=== PATIENT | female | born 1970 | race Caucasian/White ===

== ENCOUNTER → 2018-01-20 | Outpatient (CLI) | payer OTHER, MEDICAID | LOC: M RAD 11:46 | DX: R59.0 Localized enlarged lymph nodes (principal) | CPT/HCPCS: 76882 ==

== ENCOUNTER → 2018-04-04 | Outpatient (REF) | payer OTHER | LOC: M LAB REF 10:01 | DX: R22.1 Localized swelling, mass and lump, neck (principal) ==

== ENCOUNTER 2019-04-21 10:21 | Day surgery (SDC) | payer OTHER ==
[~2019-04-21] VITALS: Ht 162.6 cm; Wt 99.7 kg
[~2019-04-21 10:21] MED LIST: AVEL1TAB2 OR; CELE100C OR; EYE OU; GABAPENTIN 300 MG CAP PO ONE; HYDROCODONE PO; LIDOCAINE 1% MDV 20ML VIAL SQ PRN; LISI10TA4 OR; LISI10TA4 PO; LR 1,000 ML IV ONE; NAPR500T2 PO; OMEP10CASR PO; OMEP20TA7 OR; PATA0.2S OU; PATADAY EYE DROPS OU; PERCOCET 5MG/325MG TAB PO ONE; SIMV20TA22 PO; TAPE50TA3 PO; TYLETAB14 PO; VICO5TAB OR; VICODINES TAB PO; VOLT1GEL EX
[2019-04-21] MEDS ORDERED: THROMBIN SOLN 20,000 UNITS KIT As Ordered ONE (11:01)
[2019-04-21] MEDS ORDERED: TRANEXAMIC ACID 100 MG/ML 10ML VIAL As Ordered ONE (11:01)
[2019-04-21] MEDS ORDERED: BUPIVACAINE/EPIN 0.25% 30 ML VIAL As Ordered ONE (11:01)
[2019-04-21] MEDS ORDERED: BUPIVACAINE HCL 0.25% 10 ML VIAL As Ordered ONE (11:01)
[2019-04-21] MEDS ORDERED: EPINEPHrine INJ 1 MG/ML 1ML VIAL As Ordered ONE (11:02)
[2019-04-21] MEDS ORDERED: BUPIVACAINE LIPOSOME/PF 1.3% 20ML VIAL (13.3MG/ML)(EXPAREL)(C9290 PER1MG) As Ordered ONE (11:02)
[2019-04-21] MEDS ORDERED: BACITRACIN PWD 50,000 UNITS VIAL As Ordered ONE (11:02)
[2019-04-21] MEDS ORDERED: ceFAZolin 2 GM/D5W 50 ML IV BAG (J0690 PER 500MG) As Ordered ONE (11:10)
[2019-04-21] MEDS ORDERED: PROPOFOL 200 MG/20 ML VIAL As Ordered ONE (12:02)
[2019-04-21] MEDS ORDERED: ROCURONIUM BROMIDE 50 MG/5 ML VIAL As Ordered ONE (12:02)
[2019-04-21] MEDS ORDERED: LIDOCAINE 2% INJ 100 MG/5 ML SDV (FOR ANES.) As Ordered ONE (12:02)
[2019-04-21] MEDS ORDERED: MIDAZOLAM INJ 2 MG/2 ML VIAL (J2250) As Ordered ONE (12:02)
[2019-04-21] MEDS ORDERED: fentaNYL 100 MCG/2 ML INJECTION (J3010) As Ordered ONE (12:03)
[2019-04-21] MEDS ORDERED: METOCLOPRAMIDE INJ 10MG/2ML VIAL (J2765) As Ordered ONE (13:11)
[2019-04-21] MEDS ORDERED: MORPHINE 10 MG/ML 1ML VIAL (J2270) As Ordered ONE (13:26)
[2019-04-21] MEDS ORDERED: PHENYLephrine HCL 500 MCG/5 ML (100MCG/ML) SYRINGE (J2370) As Ordered ONE (13:40)
[2019-04-21] MEDS ORDERED: ceFAZolin 2 GM/D5W 50 ML IV BAG (J0690 PER 500MG) IV ONE (13:47)
[2019-04-21] MEDS ORDERED: ONDANSETRON 4MG/2ML VIAL (J2405) As Ordered ONE (13:51)
--- NOTE | 2019-04-21 14:19 | REP ---
Single view lumbar spine: 04/21/2019. Indication: Procedural/operative guidance. Findings: The distal tip of the localizing instrument is posterior to the L5/S1 intervertebral disc. Impression: L5/S1 localization. Electronically Signed by John Heller DO 04/21/2019 02:11 P
[2019-04-21] MEDS ORDERED: HYDROMORPHONE HCL 0.5 MG/ 0.5 ML SYRINGE (J1170 PER 1) IV PRN (15:15)
[2019-04-21] MEDS ORDERED: PROMETHAZINE INJ 25 MG/ML VIAL (J2550) IV PRN (15:15)
[2019-04-21] MEDS ORDERED: PERCOCET 5MG/325MG TAB PO PRN ×2 (15:15)
[2019-04-21] MEDS ORDERED: METOCLOPRAMIDE INJ 10MG/2ML VIAL (J2765) IV PRN (15:15)
[2019-04-21] MEDS ORDERED: LR 1,000 ML IV SCH ×2 (15:15)
[2019-04-21] MEDS ORDERED: ONDANSETRON 4MG/2ML VIAL (J2405) IV PRN (15:15)
[2019-04-21] MEDS ORDERED: fentaNYL 100 MCG/2 ML INJECTION (J3010) IV PRN (15:15)
[2019-04-21 16:00] VITALS: BP 140/78
[2019-04-21 19:30] VITALS: BP 143/81
[2019-04-21 20:00] VITALS: BP 144/81
[2019-04-21] MEDS: METAMUCIL (PSYLLIUM) PACKET PO SCH (20:35)
[2019-04-21] MEDS: GABAPENTIN 400 MG CAP PO SCH (20:35)
[2019-04-21 21:00] VITALS: BP 143/80
[2019-04-21] MEDS ORDERED: SIMVASTATIN 20 MG TAB PO SCH (21:00)
[2019-04-21 22:00] VITALS: BP 137/77
[2019-04-21 23:00] VITALS: BP 139/78
[2019-04-22 02:00] VITALS: BP 101/65
[2019-04-22] MEDS: PERCOCET 5MG/325MG TAB PO PRN ×2 (05:33→10:55)
[2019-04-22 06:00] VITALS: BP 136/74
[2019-04-22 08:11] VITALS: BP 136/74
[2019-04-22] MEDS: METAMUCIL (PSYLLIUM) PACKET PO SCH (08:11)
[2019-04-22] MEDS: GABAPENTIN 400 MG CAP PO SCH (08:14)
[2019-04-22] MEDS ORDERED: DULoxetine 30 MG CAP (CYMBALTA) PO SCH (09:00)
[2019-04-22] MEDS ORDERED: OMEPRAZOLE 20 MG CAP PO SCH (09:00)
[2019-04-22] MEDS ORDERED: lisinopriL 10 MG TAB PO SCH (09:00)
[2019-04-22] MEDS ORDERED: CelecoXIB 400 MG CAP PO ONE (09:00)
[2019-04-22 10:00] VITALS: BP 134/73
--- NOTE | 2019-05-09 20:27 | RO ---
DATE OF PROCEDURE: 04/21/2019 PREOPERATIVE DIAGNOSIS: Left lower extremity radiculopathy secondary to herniated disc at L5-S1. POSTOPERATIVE DIAGNOSIS: Left lower extremity radiculopathy secondary to herniated disc at L5-S1. PROCEDURE PERFORMED: L5-S1 microdiscectomy. SURGEON; Dr. Timothy Riggs CHILD NUTRITION ASSISTANT: Warren Mullen, Physician Typewriter Ribbon Winder ANESTHESIA: General. SPECIMENS: Include disc material. ESTIMATED BLOOD LOSS: Less than 50 mL, replaced with crystalloid. No drains. No complications. INDICATIONS: Paresthesias radiating down the left lower extremity and intolerable pain. The patient has elected for operative intervention. MRI evidence of disc herniation on the left at L5-S1. Consent reviewed in detail with the patient, including a lisa discussion of the pathology involved, the procedure proposed, alternatives including doing nothing and risks, including, but not limited to, pain, failure, infection, bleeding, blood loss, incomplete relief of symptoms, need for additional surgery, nerve injury and other problems. The patient agrees to proceed with surgery. DESCRIPTION OF PROCEDURE: Identified in holding area, site and side verified, brought to the operating room, general endotracheal anesthesia was administered. She was positioned on the Masoud frame in the usual fashion, knees slightly flexed, axillary roll utilized, sequential compression devices (SCDs), thromboembolism deterrent (LOUIE) hose utilized. Once I and the mass spectrometry specialist were comfortable with the patient's positioning, she was then sterilely prepped and draped in usual fashion for exposure. Next, I stood on the patient's left side, Mr. Mullen on the right side. I utilized 3.5 loupe magnification and a headlamp for the first portion of the procedure, the secondary portion of the procedure utilized sterile microscope. Next, the incision was based on palpation of the iliac crest outlined with a marking pen. The incision was approximately 2.5 fingerbreadths, infiltrated with 0.25% Marcaine with epinephrine. A longitudinal standard incision made with a 10 blade knife, developed down through skin and subcuticular tissues. I developed this dissection to the posterior lumbar fascia, posterior lumbar fascia sharply reflected off of the spinous process of 5, dissection continued down the lamina of 5. Next, a divot was drilled in the posterior lamina of 5, and the Zarate Nando was placed in the divot. A cross-table lateral x-ray was taken to verify our level. Next, once this was accomplished, the dissection continued superiorly and inferiorly further exposing the L5-S1 space and lamina and S1 lamina. Shadow-Line retractor was installed. Next, irrigation was accomplished. Operating microscope had been sterilely draped. This was brought in, my loupes and headlamp were removed. Mr. Mullen stood on the right in the capacity of periodicals library assistant looking through the oculars on the right side of the scope. Next, Leksell was utilized to remove the posterior lamina of 5. Then, I utilized the high-speed bur, Mr. Mullen utilized the suction Angelo in the suction apparatus, I implemented a left unilateral laminotomy of the L5 level extending superiorly toward the bare area of 5, the facet complex was protected. Approximately 15% of L5-S1 facet complex was removed in the course of the procedure. Superior S1 also lightly debrided. I was able to remove some posterior ligamentum flavum using pituitaries. I utilized Renu curettes to elevate ligamentum flavum and remove ligamentum flavum using Kerrisons. This exposed the thecal sac, which was directly visualized. Bipolar cautery was utilized for hemostasis. Next, I swept the traversing nerve root and thecal sac medially to identify the herniated disc. Disc herniation appeared to be somewhat subligamentous. I did open the posterior longitudinal ligament using an 11 blade and the annulus using the 11 blade. I removed disc in piecemeal fashion using pituitaries, and I probed around the subligamentous area and interdisc space to verify there was no additional free friable disc material. Next, the wound was inspected, the neural foramina was palpated with the Zarate Nando and found to be patent. Irrigation was accomplished. I did not appreciate any bleeding or cerebrospinal fluid (CSF) leak. All retractors were removed. Posterior lumbar fascia was then reapproximated with interrupted stitch, deep dermis with interrupted stitch. A Prineo dressing was applied. The patient was then able to be log-rolled to the hospital bed, extubated, and moved to the recovery room in good condition. For further details, please refer to the medical record. Mr. Mullen participated in the entirety of the case in the capacity of periodicals library assistant. I was present during the entirety of the case.
== END 2019-04-22 12:30 | disposition home or self-care (01) ==
LOC: M SDC 10:21 → M MS5PR 16:00 → M SDC 04-22 12:30
PROVIDERS: ATTEND Orthopaedic Surgery
DX: M51.17 Intervertebral disc disorders with radiculopathy, lumbosacral region (principal); I10 Essential (primary) hypertension; E78.00 Pure hypercholesterolemia, unspecified; G57.92 Unspecified mononeuropathy of left lower limb; E66.9 Obesity, unspecified; Z68.37 Body mass index [BMI] 37.0-37.9, adult; Z87.891 Personal history of nicotine dependence; Z79.899 Other long term (current) drug therapy; Z79.891 Long term (current) use of opiate analgesic; Z88.5 Allergy status to narcotic agent; Z88.6 Allergy status to analgesic agent
CPT/HCPCS: 36415; 63030; 72110; 86850; 86900; 86901; 88304; 96374; C1763; C9290; J0690; J2250; J2270; J2370; J2405; J2765; J3010

== ENCOUNTER → 2019-10-02 | Outpatient (CLI) | payer OTHER ==
[~2019-10-02] MED LIST changes: -GABAPENTIN 300 MG CAP PO ONE; -LIDOCAINE 1% MDV 20ML VIAL SQ PRN; -LR 1,000 ML IV ONE; -PERCOCET 5MG/325MG TAB PO ONE
== END ==
LOC: M LABSMTC 09:28
PROVIDERS: ATTEND Physician Assistant
DX: Z11.59 Encounter for screening for other viral diseases (principal)

== ENCOUNTER → 2020-01-17 | Outpatient (CLI) | payer OTHER | LOC: M LABSMTC 10:00 | PROVIDERS: ATTEND Physical Medicine & Rehabilitation | DX: Z11.59 Encounter for screening for other viral diseases (principal); Z20.828 Contact with and (suspected) exposure to other viral communicable diseases ==

== ENCOUNTER → 2020-03-03 | Outpatient (CLI) | payer OTHER | LOC: M LABSMTC 08:34 | PROVIDERS: ATTEND Physical Medicine & Rehabilitation | DX: Z20.828 Contact with and (suspected) exposure to other viral communicable diseases (principal) ==

== ENCOUNTER → 2020-08-08 | Outpatient (REF) ==
[~2020-08-08] MED LIST changes: +LISI10TA22 PO; -LISI10TA4 PO
[2020-08-08 12:42] LABS: COLLAGEN EPINEPHRINE 109 SECONDS (74-162)
== END ==
LOC: M LAB REF 12:05
DX: M51.27 Other intervertebral disc displacement, lumbosacral region (principal)

== ENCOUNTER → 2021-08-14 | Outpatient (REF) ==
[2021-08-14 13:59] LABS: COLLAGEN EPINEPHRINE 112 SECONDS (74-162)
== END ==
LOC: M LAB REF 13:26
DX: Z00.00 Encounter for general adult medical examination without abnormal findings (principal)

== ENCOUNTER → 2021-11-04 | Outpatient (CLI) | payer OTHER, SELFPAY | LOC: M PLAIMG 08:28 | PROVIDERS: ATTEND Nurse Practitioner Family | DX: M54.16 Radiculopathy, lumbar region (principal) ==

== ENCOUNTER → 2021-11-25 | Outpatient (CLI) | payer SELFPAY | LOC: M PLAIMG 06:51 | PROVIDERS: ATTEND Nurse Practitioner Family | DX: M47.26 Other spondylosis with radiculopathy, lumbar region (principal) ==

== ENCOUNTER → 2023-08-26 | Outpatient (CLI) | payer OTHER | LOC: M RAD 10:12 | PROVIDERS: ATTEND Family Medicine | DX: Z12.2 Encounter for screening for malignant neoplasm of respiratory organs (principal); F17.210 Nicotine dependence, cigarettes, uncomplicated; R91.1 Solitary pulmonary nodule ==

== ENCOUNTER → 2023-09-20 | Outpatient (CLI) | payer OTHER | LOC: M PLARAD 11:01 | PROVIDERS: ATTEND Family Medicine | DX: R91.1 Solitary pulmonary nodule (principal); F17.201 Nicotine dependence, unspecified, in remission | CPT/HCPCS: 78815; A9552 ==

== ENCOUNTER → 2023-10-18 | Outpatient (CLI) | payer OTHER ==
[~2023-10-18] MED LIST changes: +LIDOCAINE 1% MDV 20ML VIAL As Ordered ONE; +METF500T13 PO; +METO25TA4 PO; +POTA-149 PO; +ROSU20TA61 PO
[2023-10-18 12:20] VITALS: TEMP 99
[2023-10-18 13:05] VITALS: BP 151/69; O2SAT 97
== END ==
LOC: M IRPRO 11:57
PROVIDERS: ATTEND Otolaryngology
DX: R22.1 Localized swelling, mass and lump, neck (principal)

== ENCOUNTER 2024-02-03 09:01 | Observation (INO) | payer OTHER ==
[2024-02-03] VITALS (8 sets, daily range): BP systolic 100–134; BP diastolic 53–71; TEMP 97.4–98.5; O2SAT 90–97
[~2024-02-03] VITALS: Ht 162.6 cm; Wt 95.3 kg
[~2024-02-03 09:01] MED LIST changes: +FURO20TA2 PO; -LIDOCAINE 1% MDV 20ML VIAL As Ordered ONE; +LISI20TA33 PO; -ROSU20TA61 PO; +ROSU20TA86 PO
[2024-02-03] MEDS ORDERED: BACITRACIN OINTMENT 30GM TUBE As Ordered ONE (11:16)
[2024-02-03] MEDS ORDERED: propofoL 200 MG/20 ML VIAL As Ordered ONE (11:20)
[2024-02-03] MEDS ORDERED: ROCURONIUM BROMIDE 50MG/5ML VIAL As Ordered ONE (11:20)
[2024-02-03] MEDS ORDERED: MIDAZOLAM INJ 2MG/2ML VIAL As Ordered ONE (11:20)
[2024-02-03] MEDS ORDERED: ONDANSETRON 4MG 2ML VIAL As Ordered ONE (11:20)
[2024-02-03] MEDS ORDERED: LIDOCAINE 2% 100MG/5ML SDV (FOR ANES.) As Ordered ONE (11:20)
[2024-02-03] MEDS ORDERED: fentaNYL 250 MCG/5 ML INJECTION As Ordered ONE (11:20)
[2024-02-03] MEDS ORDERED: dexmedeTOMIDine (4MCG/ML)200MCG/50ML BTL (PRECEDEX) As Ordered ONE (11:21)
[2024-02-03] MEDS ORDERED: PHENYLephrine 500MCG 5ML (100MCG/ML) SYRINGE As Ordered ONE (12:04)
[2024-02-03] MEDS ORDERED: ePHEDrine SULFATE 25 MG/5 ML(5MG/ML) SYRINGE As Ordered ONE (12:11)
[2024-02-03] MEDS: LIDOCAINE W/EPINEPHRINE 1% 20ML VIAL As Ordered ONE (12:23)
[2024-02-03] MEDS ORDERED: SUGAMMADEX SODIUM 500 MG/5 ML VIAL (BRIDION) As Ordered ONE (13:10)
[2024-02-03] MEDS ORDERED: ACETAMINOPHEN 1000MG 100ML IV BAG As Ordered ONE (13:10)
[2024-02-03] MEDS ORDERED: oxyCODONE 5MG TAB PO PRN (14:10)
[2024-02-03] MEDS ORDERED: ONDANSETRON 4MG 2ML VIAL IV PRN (14:10)
[2024-02-03] MEDS ORDERED: fentaNYL 100 MCG/2 ML INJECTION IV PRN (14:10)
[2024-02-03] MEDS ORDERED: ACETAMINOPHEN 325 MG TAB PO PRN (16:30)
[2024-02-03] MEDS ORDERED: DEXTROSE 50% 50ML SYRINGE IV PRN (16:40)
[2024-02-03] MEDS ORDERED: GLUCOSE 4 GM CHEW PO PRN (16:40)
[2024-02-03] MEDS ORDERED: GLUCAGON INJ 1MG VIAL SC PRN (16:40)
[2024-02-03] MEDS ORDERED: ACETAMINOPHEN 500 MG TAB PO PRN (17:45)
[2024-02-03] MEDS: INSULIN LISPRO (NovoLOG) PER UNIT SC SCH ×2 (19:37→21:00)
[2024-02-03] MEDS ORDERED: ANEXSIA, NORCO 7.5MG/325MG TABLET(HYDROCODONE/APAP) PO PRN (19:50)
[2024-02-03] MEDS: ROSUVASTATIN 10 MG TAB (CRESTOR) PO SCH (20:40)
[2024-02-03] MEDS: METOPROLOL TART 25 MG TABLET PO SCH (20:41)
[2024-02-03] MEDS: NORCO, ANEXSIA 5/325MG TABLET (HYDROcodone/ACETAMINOPHEN) PO PRN (20:43)
[2024-02-03] MEDS: LR 1,000 ML IV SCH (23:50)
[2024-02-03] MEDS: BACITRACIN OINTMENT 30GM TUBE TOP SCH (23:51)
[2024-02-03] MEDS: AMOXICILLIN 500 MG CAP PO SCH (23:51)
[2024-02-04] VITALS: O2SAT 93
[2024-02-04 04:00] VITALS: BP 100/55; TEMP 99; O2SAT 94
[2024-02-04 08:00] VITALS: BP 130/70; TEMP 97.8; O2SAT 98
[2024-02-04 08:54] VITALS: BP 130/70
[2024-02-04] MEDS: ENOXAPARIN 40MG/0.4ML SYRINGE (J1650 PER 10MG) SC SCH (08:55)
== END 2024-02-04 10:30 | disposition home or self-care (01) ==
LOC: M SDC 09:01 → M ED INP 15:48 → M RR INP 16:01 → M PED 18:30
PROVIDERS: ADMIT Internal Medicine; ATTEND Otolaryngology
DX: D11.9 Benign neoplasm of major salivary gland, unspecified (principal); I10 Essential (primary) hypertension; E78.5 Hyperlipidemia, unspecified; E11.9 Type 2 diabetes mellitus without complications; Z79.899 Other long term (current) drug therapy; Z88.8 Allergy status to other drugs, medicaments and biological substances
CPT/HCPCS: 42415; 88307; 96360; 96361; J0131; J1100; J1650; J1815; J2250; J2371; J2405; J3010

== ENCOUNTER → 2024-09-19 | Outpatient (CLI) | payer OTHER | LOC: M PLAIMG 07:57 | PROVIDERS: ATTEND Physician Assistant | DX: M77.11 Lateral epicondylitis, right elbow (principal) ==